=== PATIENT | female | born 1985 | race Caucasian/White ===

== ENCOUNTER 2023-10-17 04:40 | Emergency (ER) | payer MEDICAID ==
[~2023-10-17] VITALS: Ht 157.5 cm; Wt 61.3 kg
[2023-10-17 04:46] VITALS: BP 137/85; PULSE 124; RESP 18; TEMP 98.3; O2SAT 100
== END 2023-10-17 06:00 | disposition left against medical advice (07) ==
LOC: ER 04:41
DX: Z00.00 Encounter for general adult medical examination without abnormal findings (principal); Z53.21 Procedure and treatment not carried out due to patient leaving prior to being seen by health care provider